=== PATIENT | female | born 2000 | race Two or more races ===

== ENCOUNTER 2023-12-31 22:49 | Inpatient (IN) | payer MEDICAID, OTHER ==
[~2023-12-31] VITALS: Ht 177.8 cm; Wt 59.0 kg
[2024-01-01] VITALS (9 sets, daily range): BP systolic 97–125; BP diastolic 53–75; PULSE 64–87; RESP 17–19; TEMP 97.5–97.8; O2SAT 97–100
[2024-01-01] MEDS: SODIUM CHLORIDE 0.9% 1,000 ML IV ONE (02:34)
[2024-01-01] MEDS: ONDANSETRON HCL 4 MG/2 ML VIAL IVP ONE (02:34)
[2024-01-01] MEDS: LORazepam 2 MG/ML VIAL IVP ONE (02:34)
[2024-01-01] MEDS ORDERED: LORazepam 2 MG TABLET PO PRN ×2 (03:00→14:00)
[2024-01-01 03:10] LABS: BASOPHILS % (AUTO) 0.6 % (0.0-2.0); EOSINOPHILS % (AUTO) 1.5 % (1.0-6.0); HEMATOCRIT 41.7 % (36-46); HEMOGLOBIN 14.3 g/dL (12.0-16.0); LYMPHOCYTES # (AUTO) 1.8 K/uL (1.0-4.8); LYMPHOCYTES % (AUTO) 34.4 % (22.0-44.0); MEAN CORPUSCULAR HEMOGLOBIN 34.6 pg (26.0-34.0); MEAN CORPUSCULAR HGB CONC 34.3 G/dL (31.0-37.0); MEAN CORPUSCULAR VOLUME 101 fL (80-100); MONOCYTES # (AUTO) 0.6 K/uL (0.1-1.0); MONOCYTES % (AUTO) 11.7 % (2.0-9.0); NEUTROPHILS # (AUTO) 2.8 K/uL (1.8-7.7); NEUTROPHILS % (AUTO) 51.8 % (40.0-70.0); PLATELET COUNT (AUTO) 227 K/uL (150-450); RED BLOOD CELL COUNT(AUTO) 4.14 MIL/uL (4.00-5.20); RED CELL DISTRIBUTION WIDTH 13.8 % (11.5-14.5); WHITE BLOOD COUNT (AUTO) 5.4 K/uL (4.5-11.0)
[2024-01-01 03:49] LABS: COVID AG,FIA SOURCE NASAL SWAB
[2024-01-01 03:55] LABS: ANION GAP 8 mmol/L (8-16); CALCIUM, TOTAL 8.9 mg/dL (8.8-10.5); CARBON DIOXIDE 28 mmol/L (22-29); CHLORIDE 102 mmol/L (98-107); CREATININE 0.62 mg/dL (0.60-1.30); GLOMERULAR FILTR. RATE CALC > 60 mL/min (>60); GLUCOSE,RANDOM 107 mg/dL (70-110); POTASSIUM 4.1 mmol/L (3.5-5.1); SODIUM SERUM 138 mmol/L (136-145); UREA NITROGEN, BLOOD 10 mg/dL (7-18)
[2024-01-01 04:06] LABS: ALANINE AMINOTRANSFERASE 24 U/L (12-78); ALBUMIN 3.6 g/dL (3.4-5.0); ALKALINE PHOSPHATASE 69 U/L (46-116); ASPARTATE AMINOTRANSFERASE 20 U/L (15-37); BILIRUBIN,TOTAL 0.4 mg/dL (0.1-1.0); LIPASE 45 U/L (16-77); TOTAL PROTEIN, SERUM 7.4 g/dL (6.4-8.2)
[2024-01-01 04:27] LABS: ALCOHOL, BLOOD (SERUM) < 3 mg/dL (0-10)
[2024-01-01 05:01] LABS: SARS-COV2 (COVID) ANTIGEN,FIA Negative (Negative)
[2024-01-01] MEDS ORDERED: CYANOCOBALAMIN 1,000 MCG/ML VIAL IM ONE (10:30)
[2024-01-01] MEDS ORDERED: HydrOXYzine PAMOATE 50 MG CAPSULE PO PRN (10:45)
[2024-01-01] MEDS ORDERED: MAG HYDROX/ALUMINUM HYD/SIMETH ES 30 ML SUSPENSION UDCUP PO PRN (10:45)
[2024-01-01] MEDS ORDERED: TUBERCULIN, PURIFIED PROTEIN DERIVATIVE 5 TU/0.1 ML SYRINGE ID ONE (10:45)
[2024-01-01] MEDS ORDERED: LOPERAMIDE HCL 2 MG CAPSULE PO PRN (10:45)
[2024-01-01] MEDS ORDERED: MAGNESIUM HYDROXIDE SUSPENSION 30 ML UDCUP PO PRN (10:45)
[2024-01-01] MEDS ORDERED: GuaiFENesin/D-METHORPHAN [SUGAR-FREE] 200-20MG/10 ML SYRUP UDCUP PO PRN (10:45)
[2024-01-01] MEDS ORDERED: DIAZEPAM 10 MG TABLET PO PRN (10:45)
[2024-01-01] MEDS: FAMOTIDINE 20 MG TABLET PO SCH (12:37)
[2024-01-01] MEDS: FOLIC ACID 1 MG TABLET PO SCH (12:37)
[2024-01-01] MEDS: QUEtiapine FUMARATE 100 MG TABLET PO PRN (12:42)
[2024-01-01] MEDS: CYANOCOBALAMIN 1,000 MCG/ML VIAL IM ONE (12:43)
[2024-01-01] MEDS: PYRIDOXINE HCL 50 MG TABLET PO SCH (15:28)
[2024-01-01] MEDS: MONTELUKAST SODIUM 10 MG TABLET PO SCH (15:28)
[2024-01-01] MEDS: LORazepam 2 MG TABLET PO ONE (15:32)
[2024-01-01] MEDS: THIAMINE 100 MG TABLET PO SCH (17:45)
[2024-01-01] MEDS: MELATONIN 5 MG TABLET PO SCH (21:00)
[2024-01-01] MEDS: MIRTAZAPINE 15 MG TABLET PO SCH (21:01)
[2024-01-02] VITALS (9 sets, daily range): BP systolic 100–120; BP diastolic 55–78; PULSE 66–78; RESP 18; TEMP 97.5–98.1; O2SAT 95–100
[2024-01-02] MEDS ORDERED: LORazepam 2 MG TABLET PO PRN (07:00)
[2024-01-02] MEDS ORDERED: DIAZEPAM 10 MG TABLET PO PRN (07:00)
[2024-01-02] MEDS: MULTIVITAMINS WITH MINERALS, THERAPEUTIC TABLET PO SCH (08:25)
[2024-01-02] MEDS: LORazepam 2 MG TABLET PO SCH (08:25)
[2024-01-02] MEDS: OMEGA-3/DHA/EPA/FISH OIL 1,000 MG CAPSULE PO SCH (08:26)
[2024-01-02] MEDS: NALTREXONE HCL 50 MG TABLET PO SCH (08:26)
[2024-01-02] MEDS ORDERED: DIAZEPAM 10 MG TABLET PO SCH (09:00)
[2024-01-02 09:41] LABS: CHOL/HDL RATIO 1.7 (3.9-5.7); FREE T4 (FREE THYROXINE) 0.86 ng/dL (0.76-1.46); THYROID STIMULATING HORMONE 0.69 uIU/mL (0.36-3.74)
[2024-01-02] MEDS: PROMETHAZINE HCL 25 MG TABLET PO PRN (21:32)
[2024-01-03 02:00] VITALS: BP 101/60; PULSE 61; RESP 18; TEMP 98.1; O2SAT 100
[2024-01-03 06:00] VITALS: BP 100/63; PULSE 62; RESP 17; TEMP 98; O2SAT 100
[2024-01-03 08:00] VITALS: BP 100/56; PULSE 61; RESP 18; TEMP 97.7; O2SAT 96
[2024-01-03 08:55] LABS: MAGNESIUM 2.3 mg/dL (1.80-2.40); PHOSPHORUS 4.5 mg/dL (2.5-4.9)
[2024-01-03 20:32] VITALS: BP 114/71; PULSE 82; RESP 18; TEMP 98.5; O2SAT 100
[2024-01-03 20:38] VITALS: BP 114/71; PULSE 82; RESP 18; TEMP 98.5; O2SAT 100
[2024-01-03] MEDS: ACETAMINOPHEN 325 MG TABLET PO PRN (20:42)
[2024-01-03] MEDS: MIRTAZAPINE 15 MG TABLET PO SCH (20:54)
[2024-01-03 22:00] VITALS: BP 92/60; PULSE 61; RESP 18; TEMP 97.5; O2SAT 100
[2024-01-04 02:00] VITALS: BP 101/60; PULSE 66; RESP 18; TEMP 97.5; O2SAT 100
[2024-01-04 06:00] VITALS: BP 100/63; PULSE 61; RESP 18; TEMP 97.6; O2SAT 100
[2024-01-04] MEDS ORDERED: LORazepam 1 MG TABLET PO PRN (07:00)
[2024-01-04] MEDS ORDERED: DIAZEPAM 5 MG TABLET PO PRN (07:00)
[2024-01-04] MEDS: LORazepam 1 MG TABLET PO SCH (08:32)
[2024-01-04 09:00] VITALS: BP 110/68; PULSE 80; RESP 18; TEMP 97.9; O2SAT 100
[2024-01-04] MEDS ORDERED: DIAZEPAM 5 MG TABLET PO SCH (09:00)
[2024-01-04 09:43] VITALS: BP 110/68; PULSE 80; RESP 16; TEMP 98.9; O2SAT 97
[2024-01-04] MEDS ORDERED: LOPERAMIDE HCL 2 MG CAPSULE PO PRN (10:45)
[2024-01-04 20:58] VITALS: BP 111/48; PULSE 76; RESP 18; TEMP 97; O2SAT 97
[2024-01-04 21:04] VITALS: BP 111/48; PULSE 76; RESP 18; TEMP 97; O2SAT 97
[2024-01-05] MEDS ORDERED: DIAZEPAM 5 MG TABLET PO PRN (07:00)
[2024-01-05 09:17] VITALS: BP 96/56; PULSE 70; RESP 16; TEMP 97.8; O2SAT 99
[2024-01-05 11:08] VITALS: BP 96/56; PULSE 70; RESP 18; TEMP 97.8; O2SAT 98
[2024-01-05 20:02] VITALS: BP 118/60; PULSE 79; RESP 18; TEMP 98.2; O2SAT 99
[2024-01-05 20:25] VITALS: BP 118/60; PULSE 79; RESP 18; TEMP 98.2; O2SAT 99
[2024-01-06] MEDS: LORazepam 1 MG TABLET PO PRN (05:38)
[2024-01-06 10:00] VITALS: BP 114/69; PULSE 78; RESP 18; TEMP 97.8; O2SAT 98
[2024-01-06 21:09] VITALS: RESP 18
[2024-01-06] MEDS: ZOLPIDEM TARTRATE 10 MG TABLET PO PRN (21:41)
[2024-01-07 08:06] VITALS: BP 100/58; PULSE 73; RESP 18; TEMP 98; O2SAT 99
[2024-01-07 20:47] VITALS: BP 119/76; PULSE 76; RESP 18; TEMP 98.1; O2SAT 97
[2024-01-08 09:25] VITALS: BP 98/64; PULSE 66; RESP 18; TEMP 98.1; O2SAT 0
[2024-01-08] MEDS ORDERED: MIRT-89 PO (14:28)
== END 2024-01-08 17:57 | disposition home or self-care (01) | DRG 751 ==
LOC: EMS 22:49 → 3EI 01-01 07:15
PROVIDERS: ADMIT Psychiatry & Neurology Psychiatry; ATTEND Psychiatry & Neurology Psychiatry
PROC: GZHZZZZ Group Psychotherapy (ICD-10-PCS; principal; 2024-01-01)
PROC: GZ58ZZZ Individual Psychotherapy, Cognitive-Behavioral (ICD-10-PCS; 2024-01-01)
PROC: GZ56ZZZ Individual Psychotherapy, Supportive (ICD-10-PCS; 2024-01-01)
DX: F33.2 Major depressive disorder, recurrent severe without psychotic features (principal); R64 Cachexia; R45.851 Suicidal ideations; D64.9 Anemia, unspecified; F41.9 Anxiety disorder, unspecified; K21.9 Gastro-esophageal reflux disease without esophagitis; J45.909 Unspecified asthma, uncomplicated; F10.239 Alcohol dependence with withdrawal, unspecified; Z20.822 Contact with and (suspected) exposure to COVID-19; Y90.9 Presence of alcohol in blood, level not specified; G47.00 Insomnia, unspecified; Z59.9 Problem related to housing and economic circumstances, unspecified; Z55.9 Problems related to education and literacy, unspecified; Z63.9 Problem related to primary support group, unspecified; Z65.3 Problems related to other legal circumstances; Z68.1 Body mass index [BMI] 19.9 or less, adult; Z91.010 Allergy to peanuts; Z91.018 Allergy to other foods; Z91.013 Allergy to seafood
CPT/HCPCS: 70450; 80048; 80061; 80076; 83036; 83690; 83735; 84100; 84439; 84443; 84703; 85025; 86592; 99285; G0480; J2060; J2405; J3420; J7030